=== PATIENT | male | born 1960 | race Caucasian/White ===

== ENCOUNTER 2017-05-02 19:24 | Emergency (ER) | payer OTHER ==
[2017-05-02 19:43] VITALS: BP 136/90; PULSE 82; TEMP 98.8
--- NOTE | 2017-05-02 21:08 | PDOC ---
History of Present Illness - General Chief Complaint: Rash Stated Complaint: RASH Time Seen by Provider: 05/02/17 20:53 History Source: Patient Exam Limitations: No Limitations - History of Present Illness Initial Comments: 05/02/17 21:03 BURNING RASH TO LEFT CHEST WALL Timing/Duration: reports: week Severity: Yes: mild Location: reports: torso Past History - Past Medical History Allergies/Adverse Reactions: Allergies Allergy/AdvReac Type Severity Reaction Status Date / Time codeine [Codeine] Allergy Severe Difficulty Verified 05/02/17 19:43 Breathing Home Medications: Ambulatory Orders Clopidogrel Bisulfate [Plavix -] 75 mg PO DAILY 06/30/14 Doxazosin Mesylate [Cardura] 4 mg PO HS 06/30/14 Isosorbide Mononitrate [Imdur] 60 mg PO DAILY 06/30/14 Lisinopril [Prinivil -] 20 mg PO DAILY 06/30/14 Metoprolol Succinate [Toprol XL -] 100 mg PO DAILY 06/30/14 Ondansetron [Zofran] 4 mg PO TID #10 tablet 06/30/14 Ranitidine HCl [Zantac] 150 mg NR BID #14 tablet 06/30/14 Simvastatin [Zocor -] 40 mg PO HS 06/30/14 Tapentadol HCl [Nucynta] 100 mg PO QID 06/30/14 Zolpidem Tartrate [Ambien] 10 mg PO HS 06/30/14 Cardiac Disorders: Yes (mi 2005) HTN: Yes Hypercholesterolemia: Yes Suicide Attempt (Hx): No Other medical history: arthritis, 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 - Surgical History Cardiac Surgery: Yes (6 stent) - Immunization History Td Vaccination: No TDAP Vaccination: No Immunization Up to Date: No - Psycho/Social/Smoking Cessation Hx Anxiety: No Suicidal Ideation: No Smoking Status: No Smoking History: Former smoker Have you smoked in the past 12 months: No Number of Cigarettes Smoked Daily: 0 Information on smoking cessation initiated: No Hx Alcohol Use: No Drug/Substance Use Hx: No Substance Use Type: None Review of Systems - Review of Systems Constitutional: No: Chills, Fever HEENTM: No: Symptoms Reported Respiratory: No: Symptoms reported, Cough Cardiac (ROS): No: Symptoms Reported ABD/GI: No: Symptoms Reported Integumentary: Yes: Other (RED BASED VESCIULAR RASHRASH ALONG SINGLE DERMATONE LEFT CHEST WALL) *Physical Exam - Vital Signs Last Vital Signs Temp Pulse Resp BP Pulse Ox 98.8 F 82 18 136/90 100 05/02/17 19:39 05/02/17 19:39 05/02/17 19:39 05/02/17 19:39 05/02/17 19:39 - Physical Exam General Appearance: Yes: Appropriately Dressed, Apparent Distress HEENT: negative: TMs Normal Neck: positive: Supple. negative: Rigid Respiratory/Chest: positive: Lungs Clear Integumentary: positive: Other (VESCIULAR LESIONS ALONG SINGLE DERMATONE LEFT CHEST WALL) Medical Decision Making - Medical Decision Making 05/02/17 21:06 WILL TREAT WITH VALTREX X 7 DAYS *DC/Admit/Observation/Transfer Diagnosis at time of Disposition: Herpes zoster Qualifiers: Herpes zoster complications: without complications Qualified Code(s): B02.9 - Zoster without complications - Discharge Dispostion Disposition: HOME Condition at time of disposition: Stable Admit: No - Patient Instructions Additional Instructions: SEE LOCAL MD 1 WEEK
== END 2017-05-02 21:31 | disposition home or self-care (01) ==
LOC: JERFT 19:24
DX: B02.9 Zoster without complications (principal); I10 Essential (primary) hypertension; E78.00 Pure hypercholesterolemia, unspecified; I25.2 Old myocardial infarction; M19.90 Unspecified osteoarthritis, unspecified site; Z88.5 Allergy status to narcotic agent; Z95.5 Presence of coronary angioplasty implant and graft; Z87.891 Personal history of nicotine dependence
CPT/HCPCS: 99281-25

== ENCOUNTER 2018-04-23 16:41 | Emergency (ER) | payer OTHER ==
[2018-04-23] MEDS ORDERED: ASPIRIN 81 MG CHEWABLE TABLETS PO ONE (16:54)
[2018-04-23 16:56] VITALS: BP 149/88; PULSE 72; TEMP 98.5; BMI 32.8
--- NOTE | 2018-04-23 16:56 | PDOC ---
Rapid Medical Evaluation Time Seen by Provider: 04/23/18 16:53 Medical Evaluation: Allergies Allergy/AdvReac Type Severity Reaction Status Date / Time codeine [Codeine] Allergy Severe Difficulty Verified 04/23/18 16:52 Breathing 04/23/18 16:54 Pt c/o: ms cp since this am, + nausea mild dizziness, NM in 06' on plavix, stent x 6 Pt on exam: ekg No st elevation/depression rate 86, vss, lcta Pt ordered for: cardiac w/u Pt to proceed to the ED Discharge Disposition - Diagnosis Chest pain - Referrals - Patient Instructions - Post Discharge Activity
[2018-04-23] MEDS ORDERED: ASPIRIN 81 MG CHEWABLE TABLETS ONE (17:27)
[2018-04-23 18:13] LABS: URINE APPEARANCE CLEAR; URINE BILIRUBIN NEGATIVE (<2.0 mg/dL); URINE COLOR LTYELLOW; URINE GLUCOSE (UA) NEGATIVE (NEGATIVE); URINE KETONE NEGATIVE (NEGATIVE); URINE LEUK ESTERASE NEGATIVE (NEGATIVE); URINE NITRITE NEGATIVE (NEGATIVE); URINE PROTEIN NEGATIVE (NEGATIVE); URINE UROBILINOGEN NEGATIVE mg/dL (0.2-1.0)
--- NOTE | 2018-04-23 18:20 | PDOC ---
History of Present Illness - General Chief Complaint: Chest Pain Stated Complaint: CHEST PAIN Time Seen by Provider: 04/23/18 16:53 - History of Present Illness Initial Comments: 04/23/18 19:27 The patient is a 57 year old male with a history of HTN, [place] s/p stenting x6 who presents for evaluation of chest pain. The patient notes that he had a stressful weekend driving to and back from [place]. He noted chest pain earlier today similar to pain he has had in the past, but due to his cardiac history was concerned and presented to the ED for further evaluation. He notes some left eye pain as well, but otherwise denies fevers, chills, SOB, nausea, vomiting, abdominal pain, or changes with urination or bowel movements. Past History - Past Medical History Allergies/Adverse Reactions: Allergies Allergy/AdvReac Type Severity Reaction Status Date / Time codeine [Codeine] Allergy Severe Difficulty Verified 04/23/18 16:52 Breathing Home Medications: Ambulatory Orders Clopidogrel Bisulfate [Plavix -] 75 mg PO DAILY 06/30/14 Doxazosin Mesylate [Cardura] 4 mg PO HS 06/30/14 Isosorbide Mononitrate [Imdur] 60 mg PO DAILY 06/30/14 Lisinopril [Prinivil -] 20 mg PO DAILY 06/30/14 Metoprolol Succinate [Toprol XL -] 100 mg PO DAILY 06/30/14 Ondansetron [Zofran] 4 mg PO TID #10 tablet 06/30/14 Ranitidine HCl [Zantac] 150 mg NR BID #14 tablet 06/30/14 Simvastatin [Zocor -] 40 mg PO HS 06/30/14 Tapentadol HCl [Nucynta] 100 mg PO QID 06/30/14 Valacyclovir HCl [Valtrex] 1,000 mg PO TID #21 tablet 05/02/17 Valacyclovir HCl [Valtrex] 1,000 mg PO TID #21 tablet 05/02/17 Cardiac Disorders: Yes (mi 2005) COPD: No HTN: Yes Hypercholesterolemia: Yes - Surgical History Cardiac Surgery: Yes (6 stent) - Immunization History Td Vaccination: No TDAP Vaccination: No Immunization Up to Date: No - Suicide/Smoking/Psychosocial Hx Smoking Status: No Smoking History: Former smoker Have you smoked in the past 12 months: No Number of Cigarettes Smoked Daily: 0 Information on smoking cessation initiated: No Hx Alcohol Use: No Drug/Substance Use Hx: No Substance Use Type: None Review of Systems - Review of Systems Comments:: 04/23/18 19:29 Constitutional: No fevers, chills, fatigue, malaise HEENT: Left Eye pain. No Rhinorrhea, nasal congestion, visual changes Cardiovascular: Chest pain. No syncope, palpitations, lightheadedness Respiratory: No Cough, SOB, Hemoptysis, Gastrointestinal: No Abdominal pain, Nausea, Vomiting, Constipation, Diarrhea, Melena Genitourinary: No Dysuria, Frequency, Urgency, Hesitancy, Hematuria, Flank pain Musculoskeletal: No Myalgia, arthralgia Skin: No rashes, itching, bruising, pallor Neurologic: No Headache, Dizziness, Numbness, Weakness, or Tingling Psychiatric: No Hallucinations. No SI or HI *Physical Exam - Vital Signs Last Vital Signs Temp Pulse Resp BP Pulse Ox 98.5 F 72 19 149/88 97 04/23/18 16:52 04/23/18 16:52 04/23/18 16:52 04/23/18 16:52 04/23/18 16:52 - Physical Exam Comments: 04/23/18 19:30 General Appearance: Nourished. No Apparent Distress HEENT: EOMI, WILLIS. Erythema and swelling around the left eye. No Pharyngeal Erythema, Tonsillar Exudate, Tonsillar Erythema Neck: No Cervical Lymphadenopathy Respiratory/Chest: Lungs Clear, Normal Breath Sounds. No Crackles, Rales, Rhonchi, Wheezing Cardiovascular: Regular Rhythm, Regular Rate. No Murmur, Gallops, Rubs Gastrointestinal/Abdominal: Normal Bowel Sounds, Soft. No Guarding, Rebound, Tenderness Musculoskeletal: No CVA Tenderness Extremity: Normal Capillary Refill Integumentary: Normal Color, Dry, Warm Neurologic: Fully Oriented, Alert, Normal Mood/Affect, Normal Response, Heart Score/ECG Review #1 ECG reviewed & interpreted by me at: 19:32 General ECG Interpretation: Sinus Rhythm, Normal Rate, Normal Intervals, No acute ischemic changes ED Treatment Course - LABORATORY CBC & Chemistry Diagram: 04/23/18 17:39 04/23/18 17:39 - Medications Given in the ED: ED Medications Discontinued Medications Generic Name Dose Route Start Last Admin Trade Name Freq PRN Reason Stop Dose Admin Aspirin 162 mg 07/30/18 16:54 04/23/18 17:28 Asa - PO 04/23/18 16:55 162 mg ONCE ONE Administration Medical Decision Making - Medical Decision Making 04/23/18 19:33 The patient is a 57 year old male with a history of HTN, [place] s/p stenting x6 who presents for evaluation of chest pain. Given the patient's history and physical exam, the patient appears to have a pre-septal cellulitis around the left eye. Also given his significant cardiac history, we will obtain a cbc, cmp , troponin, chest plain film, ekg to evaluate further. We will continue to monitor and reassess while here in the ED. 04/23/18 19:48 CBC, cmp, troponin are unremarkable. Chest plain film is unremarkable as read by our radiologist. However given the patient's cardiac history, we believe he should be admitted for further monitoring. The patient stated that he wished to leave AMA. We discussed the risks of leaving AMA including but not limited to and permanent disability and the patient voiced that he wished to leave AMA. We discussed the benefits of admission and the patient continued to wish to leave AMA. The patient states that he will follow up with his primary care provider. The patient signed the AMA form and his IV was removed. *DC/Admit/Observation/Transfer Diagnosis at time of Disposition: Chest pain Qualifiers: Chest pain type: unspecified Qualified Code(s): R07.9 - Chest pain, unspecified - Discharge Dispostion Disposition: AGAINST MEDICAL ADVICE Condition at time of disposition: Stable - Referrals Referrals: Nitza Baltazar MD [Primary Care Provider] - - Patient Instructions Printed Discharge Instructions: DI for Chest Pain Additional Instructions: Please return to the ER if you experience any concerning or worsening symptoms including worsening pain, lightheadedness or shortness of breath. - Post Discharge Activity
[2018-04-23 18:23] LABS: ALBUMIN 4.2 g/dl (3.4-5.0); ANION GAP 8 (8-16); BILIRUBIN,TOTAL 0.5 mg/dL (0.2-1.0); BLOOD UREA NITROGEN 20 mg/dL (7-18); CALCIUM 9.2 mg/dL (8.5-10.1); CHLORIDE 107 mmol/L (98-107); CO2 27 mmol/L (21-32); CREATININE 1.2 mg/dL (0.7-1.3); GLUCOSE,RANDOM 157 mg/dL (74-106); POTASSIUM 4.5 mmol/L (3.5-5.1); SGOT/AST 21 U/L (15-37); SGPT/ALT 59 U/L (12-78); SODIUM 142 mmol/L (136-145); TOT PROT 7.2 g/dl (6.4-8.2)
[2018-04-23 18:25] LABS: ALK PHOS 47 U/L (45-117)
[2018-04-23 18:34] LABS: INR 1.13 (0.83-1.09); PROTHROMBIN TIME (PATIENT) 12.8 SEC (9.7-13.0)
[2018-04-23 18:51] LABS: BASO % 0.8 % (0-2.0); HEMOGLOBIN 15.5 GM/dL (11.7-16.9); LYMPH % 24.8 % (8-40); MCH 30.9 pg (25.7-33.7); MCHC 35.2 g/dl (32.0-35.9); MEAN CELL VOLUME 87.7 fl (80-96); MEAN PLT VOLUME 10.3 fl (7.5-11.1); NEUT % 62.4 % (42.8-82.8); PLATELET COUNT 173 K/MM3 (134-434); RBC 5.01 M/mm3 (4.00-5.60); RDW 12.9 % (11.9-15.9); WHITE BLOOD COUNT 6.5 K/mm3 (4.0-10.0)
[2018-04-23] MEDS ORDERED: ERYTHROMYCIN 0.5% OPHTHALMIC OINTMENT 3.5 GM TUBE OD ONE (19:44)
--- NOTE | 2018-04-23 19:45 | PDOC ---
Attending Attestation - HPI HPI: 04/23/18 19:46 The patient is a 57 year old male with a history of hypertension, [place] s/p stenting x6, who presents to the emergency department for evaluation of chest pain today. The patient states he had a stressful weekend driving to and back from [place]. He also reports some mild left eye pain. The patient denies chest pain, shortness of breath, headache and dizziness. The patient denies fever, chills, nausea, vomit, diarrhea and constipation. The patient denies dysuria, frequency, urgency and hematuria. Allergies: NKDA - Physicial Exam PE: 04/23/18 19:46 GENERAL: Well developed, well nourished. Awake and alert. No acute distress. HEENT: Normocephalic, atraumatic. PERRLA, EOMI. No conjunctival pallor. Sclera are non- icteric. Moist mucous membranes. Oropharynx is clear. NECK: Supple. Full ROM. No JVD. Carotid pulses 2+ and symmetric, without bruits. No thyromegaly. No lymphadenopathy. CARDIOVASCULAR: Regular rate and rhythm. No murmurs, rubs, or gallops. Distal pulses are 2+ and symmetric. PULMONARY: No evidence of respiratory distress. Lungs clear to auscultation bilaterally. No wheezing, rales or rhonchi. ABDOMINAL: Soft. Non-tender. Non-distended. No rebound or guarding. No organomegaly. Normoactive bowel sounds. MUSCULOSKELETAL Normal range of motion at all joints. No bony deformities or tenderness. No CVA tenderness. EXTREMITIES: No cyanosis. No clubbing. No edema. No calf tenderness. SKIN: Warm and dry. Normal capillary refill. No rashes. No jaundice. NEUROLOGICAL: Alert, awake, appropriate. Cranial nerves 2-12 intact. Normoreflexic in the upper and lower extremities. Normal speech. Toes are down-going bilaterally. Gait is normal without ataxia. PSYCHIATRIC: Cooperative. Good eye contact. Appropriate mood and affect. - Medical Decision Making 04/23/18 19:46 Documentation prepared by Janette Bertrand, acting as district medical examiner for Opal Zambrano MD <Janette Bertrand - Last Filed: 04/23/18 19:46> - Resident Resident Name: Gulshan Valdivia - Medical Decision Making 04/23/18 19:49 57-year-old male who drove to [place] and back in one week and presents with substernal chest pain. Past medical history significant for coronary artery disease and has had 6 cardiac stents placed. First troponin is negative and his EKG does not show any acute ischemic changes -spoke to pt and his at length and he will not stay for a repeat troponin. I told him he had significant risk factors and I could not r/o [place] with one troponin level. he would not stay and signed out AMA <Opal Zambrano - Last Filed: 04/23/18 19:54>
--- NOTE | 2018-04-24 17:03 | EKG ---
Test Reason : Blood Pressure : / mmHG Vent. Rate : 069 BPM Atrial Rate : 069 BPM P-R Int : 160 ms QRS Dur : 086 ms QT Int : 388 ms P-R-T Axes : 001 -15 -19 degrees QTc Int : 415 ms NORMAL SINUS RHYTHM INFERIOR INFARCT (CITED ON OR BEFORE 22-APR-2003) ABNORMAL ECG Confirmed by MD KING GREGORY ([id number]) on 04/24/2018 5:02:53 PM Referred By: Confirmed By:HERNÁN KING MD
== END 2018-04-23 20:20 | disposition left against medical advice (07) ==
LOC: JER 16:41
DX: I25.2 Old myocardial infarction (principal); I25.10 Atherosclerotic heart disease of native coronary artery without angina pectoris; I10 Essential (primary) hypertension; Z95.5 Presence of coronary angioplasty implant and graft
CPT/HCPCS: 36415; 71045-TC-FY; 80053; 81003; 82550; 82553; 84484; 85025; 85610; 93005; 93010; 99282-25

== ENCOUNTER 2020-12-22 17:52 | Inpatient (IN) | payer OTHER ==
[2020-12-22 18:27] VITALS: BMI 33.4
[2020-12-22] MEDS ORDERED: ACETAMINOPHEN 1000 MG/100 ML VIAL (NON FORMULARY) IVPB ONE (18:30)
[2020-12-22] MEDS ORDERED: ACETAMINOPHEN INJECTION 100 ML IVPB ONE (18:40)
[2020-12-22] MEDS ORDERED: SODIUM CHLORIDE 500 ML IV STA (19:01)
[2020-12-22 19:22] LABS: VENOUS BASE EXCESS 0.7 mmol/L (-2-2); VENOUS PCO2 37.4 mmHg (38-52); VENOUS PH 7.436 (7.310-7.410)
[2020-12-22 19:25] LABS: VENOUS O2 SATURATION 80.5 % (70-80)
[2020-12-22 19:30] LABS: BASO % 0.3 % (0-2.0); EOS % 0.4 % (0-4.5); HEMATOCRIT 39.7 % (35.4-49); HEMOGLOBIN 13.5 GM/dL (11.7-16.9); LYMPH % 21.3 % (8-40); MCH 30.2 pg (25.7-33.7); MCHC 33.9 g/dl (32.0-35.9); MEAN CELL VOLUME 89.2 fl (80-96); MEAN PLT VOLUME 9.7 fl (7.5-11.1); MONO % 5.7 % (3.8-10.2); NEUT % 72.3 % (42.8-82.8); PLATELET COUNT 130 K/MM3 (134-434); RBC 4.46 M/mm3 (4.00-5.60); RDW 13.4 % (11.9-15.9); WHITE BLOOD COUNT 3.7 K/mm3 (4.0-10.0)
[2020-12-22 19:42] LABS: INR 1.26 (0.83-1.09); PROTHROMBIN TIME (PATIENT) 15.2 SEC (9.7-13.0)
[2020-12-22 19:43] LABS: CHLORIDE 99 mmol/L (98-107); SODIUM 131 mmol/L (136-145)
[2020-12-22 19:44] LABS: CALCIUM 7.5 mg/dL (8.5-10.1); GLUCOSE,RANDOM 150 mg/dL (74-106)
[2020-12-22 19:45] LABS: ACTIVATED PTT 32.6 SECONDS (25.2-36.5); ANION GAP 7 MMOL/L (8-16); BLOOD UREA NITROGEN 17.5 mg/dL (7-18); CO2 26 mmol/L (21-32)
[2020-12-22 19:47] LABS: BILIRUBIN,DIRECT 0.2 mg/dL (0.0-0.2)
[2020-12-22 19:48] LABS: SGPT/ALT 33 U/L (13-61)
[2020-12-22 19:49] LABS: CREATININE 1.2 mg/dL (0.55-1.3); SGOT/AST 47 U/L (15-37)
[2020-12-22 19:50] LABS: BILIRUBIN,TOTAL 0.7 mg/dL (0.2-1); TOT PROT 6.1 g/dl (6.4-8.2)
[2020-12-22 19:51] LABS: ALK PHOS 33 U/L (45-117)
[2020-12-22] MEDS ORDERED: DEXAMETHASONE SOD PHOSPHATE 4 MG/1 ML VIAL IVPUSH ONE (20:28)
[2020-12-22 20:32] LABS: LDH 473 U/L (87-246)
[2020-12-22] MEDS ORDERED: DEXAMETHASONE SOD PHOSPHATE 4 MG/1 ML VIAL ONE (21:33)
[2020-12-22] MEDS: SODIUM CHLORIDE 1,000 ML IV SCH (23:00)
[2020-12-23] MEDS ORDERED: ONDANSETRON *ODT* 4 MG TABLET ONE (06:34)
[2020-12-23] MEDS: ONDANSETRON 4 MG TABLET PO SCH ×3 (06:55→22:10)
[2020-12-23] MEDS: INSULIN SLIDING SCALE (NOVOLOG) 1 VIAL SQ SCH ×3 (07:29→17:01)
[2020-12-23 07:32] LABS: BASO % 0.6 % (0-2.0); EOS % 0.1 % (0-4.5); HEMATOCRIT 42.3 % (35.4-49); HEMOGLOBIN 14.9 GM/dL (11.7-16.9); LYMPH % 17.9 % (8-40); MCH 31.1 pg (25.7-33.7); MCHC 35.2 g/dl (32.0-35.9); MEAN CELL VOLUME 88.2 fl (80-96); MEAN PLT VOLUME 9.6 fl (7.5-11.1); MONO % 6.7 % (3.8-10.2); NEUT % 74.7 % (42.8-82.8); PLATELET COUNT 153 K/MM3 (134-434); RDW 13.1 % (11.9-15.9)
[2020-12-23 07:53] LABS: ALBUMIN 3.1 g/dl (3.4-5.0)
[2020-12-23 07:54] LABS: BLOOD UREA NITROGEN 20.8 mg/dL (7-18)
[2020-12-23 07:57] LABS: CALCIUM 7.9 mg/dL (8.5-10.1); CREATININE 1.3 mg/dL (0.55-1.3)
[2020-12-23 07:58] LABS: BILIRUBIN,TOTAL 0.8 mg/dL (0.2-1)
[2020-12-23 07:59] LABS: TOT PROT 6.6 g/dl (6.4-8.2)
[2020-12-23] MEDS ORDERED: ENOXAPARIN NA (PORCINE) 40 MG/0.4 ML DISP.SYRIN SQ SCH (10:00)
[2020-12-23] MEDS ORDERED: DEXAMETHASONE 4 MG TABLET (FP) PO SCH (10:00)
[2020-12-23] MEDS ORDERED: FAMOTIDINE 20 MG TABLET ONE ×2 (10:30→22:03)
[2020-12-23] MEDS ORDERED: DEXAMETHASONE SOD PHOSPHATE 10 MG/1 ML VIAL ONE (10:30)
[2020-12-23] MEDS ORDERED: CLOPIDOGREL BISULFATE 75 MG TABLET (FP) ONE (10:31)
[2020-12-23] MEDS ORDERED: LISINOPRIL 20 MG TABLET ONE (10:31)
[2020-12-23] MEDS ORDERED: ISOSORBIDE MONONITRATE 60 MG TAB.SR.24H (FP) PO ONE (10:31)
[2020-12-23] MEDS ORDERED: PT OWN MED DRAWER 7, Y5N ONE (10:32)
[2020-12-23] MEDS ORDERED: ENOXAPARIN NA (PORCINE) 40 MG/0.4 ML DISP.SYRIN SQ ONE ×2 (10:32→22:03)
[2020-12-23] MEDS: ISOSORBIDE MONONITRATE 60 MG TAB.SR.24H (FP) PO SCH (10:41)
[2020-12-23] MEDS: CLOPIDOGREL BISULFATE 75 MG TABLET (FP) PO SCH (10:43)
[2020-12-23] MEDS: FAMOTIDINE 20 MG TABLET PO SCH ×2 (10:43→22:10)
[2020-12-23] MEDS: LISINOPRIL 20 MG TABLET PO SCH (10:44)
[2020-12-23] MEDS ORDERED: ALBUTEROL SO4 HFA INHALER IH ONE ×2 (16:11→22:02)
[2020-12-23] MEDS ORDERED: REMDESIVIR 200 MG in SODIUM CHLORIDE 210 ML IVPB ONE (16:30)
[2020-12-23] MEDS: ALBUTEROL SO4 HFA INHALER IH SCH ×2 (16:33→22:15)
[2020-12-23] MEDS ORDERED: ATORVASTATIN CA 20 MG TABLET (FP) ONE (22:02)
[2020-12-23] MEDS: ENOXAPARIN NA (PORCINE) 40 MG/0.4 ML DISP.SYRIN SQ SCH (22:10)
[2020-12-23] MEDS: ATORVASTATIN CA 20 MG TABLET (FP) PO SCH (22:10)
[2020-12-23] MEDS: BUDESONIDE/FORMETEROL FUMARATE 160/4.5 mcg INHALER IH SCH (22:27)
[2020-12-23] MEDS: DOXAZOSIN MESYLATE 4 MG TABLET PO SCH (22:27)
[2020-12-23] MEDS: SODIUM CHLORIDE 1,000 ML IV SCH (23:12)
[2020-12-24] MEDS ORDERED: ZOLPIDEM TARTRATE 5 MG TABLET PO ONE (00:56)
[2020-12-24] MEDS: ACETAMINOPHEN 325 MG TABLET (FP) PO PRN ×2 (01:01→12:19)
[2020-12-24] MEDS: ONDANSETRON 4 MG TABLET PO SCH ×3 (06:11→17:10)
[2020-12-24] MEDS: INSULIN SLIDING SCALE (NOVOLOG) 1 VIAL SQ SCH ×3 (06:19→17:25)
[2020-12-24] MEDS: ALBUTEROL SO4 HFA INHALER IH SCH ×4 (08:42→21:35)
[2020-12-24] MEDS: FAMOTIDINE 20 MG TABLET PO SCH ×2 (09:43→21:35)
[2020-12-24] MEDS: ISOSORBIDE MONONITRATE 60 MG TAB.SR.24H (FP) PO SCH (09:43)
[2020-12-24] MEDS: LISINOPRIL 20 MG TABLET PO SCH (09:43)
[2020-12-24] MEDS: CLOPIDOGREL BISULFATE 75 MG TABLET (FP) PO SCH (09:43)
[2020-12-24] MEDS: ENOXAPARIN NA (PORCINE) 40 MG/0.4 ML DISP.SYRIN SQ SCH ×2 (09:44→21:36)
[2020-12-24] MEDS ORDERED: TAPENTADOL HYDROCHLORIDE 50 MG TABLET PO PRN (09:53)
[2020-12-24] MEDS: DEXAMETHASONE SOD PHOSPHATE 4 MG/1 ML VIAL IVPUSH SCH (10:56)
[2020-12-24] MEDS ORDERED: PT OWN MED DRAWER 7, Y5N ONE ×2 (12:07→18:36)
[2020-12-24] MEDS: BUDESONIDE/FORMETEROL FUMARATE 160/4.5 mcg INHALER IH SCH ×2 (12:13→21:36)
[2020-12-24] MEDS ORDERED: SODIUM CHLORIDE NASAL SPRAY 44 ML BOTTLE NS PRN (12:23)
[2020-12-24] MEDS: TAPENTADOL HCL 50 MG TAB.ER.12H PO SCH ×3 (13:58→21:36)
[2020-12-24] MEDS: SODIUM CHLORIDE 1,000 ML IV SCH (13:59)
[2020-12-24] MEDS: REMDESIVIR 100 MG in SODIUM CHLORIDE 230 ML IVPB SCH (17:09)
[2020-12-24] MEDS: ATORVASTATIN CA 20 MG TABLET (FP) PO SCH (21:35)
[2020-12-24] MEDS: DOXAZOSIN MESYLATE 4 MG TABLET PO SCH (21:35)
[2020-12-24] MEDS: BENZOCAINE/MENTH/CETYLPYRD CL 1 EACH LOZENGE MM PRN (21:36)
[2020-12-25] MEDS: SODIUM CHLORIDE 1,000 ML IV SCH (01:06)
[2020-12-25] MEDS ORDERED: PT OWN MED DRAWER 7, Y5N ONE (06:23)
[2020-12-25] MEDS: INSULIN SLIDING SCALE (NOVOLOG) 1 VIAL SQ SCH ×3 (06:36→16:58)
[2020-12-25] MEDS: ONDANSETRON 4 MG TABLET PO SCH ×3 (06:37→16:58)
[2020-12-25] MEDS: DEXAMETHASONE SOD PHOSPHATE 4 MG/1 ML VIAL IVPUSH SCH (09:01)
[2020-12-25] MEDS: ALBUTEROL SO4 HFA INHALER IH SCH ×4 (09:02→21:09)
[2020-12-25] MEDS: ENOXAPARIN NA (PORCINE) 40 MG/0.4 ML DISP.SYRIN SQ SCH ×2 (09:02→21:09)
[2020-12-25] MEDS: FAMOTIDINE 20 MG TABLET PO SCH ×2 (09:03→21:10)
[2020-12-25] MEDS: ISOSORBIDE MONONITRATE 60 MG TAB.SR.24H (FP) PO SCH (09:03)
[2020-12-25] MEDS: TAPENTADOL HCL 50 MG TAB.ER.12H PO SCH ×2 (09:03→21:10)
[2020-12-25] MEDS: LISINOPRIL 20 MG TABLET PO SCH (09:03)
[2020-12-25] MEDS: CLOPIDOGREL BISULFATE 75 MG TABLET (FP) PO SCH (09:03)
[2020-12-25] MEDS: BUDESONIDE/FORMETEROL FUMARATE 160/4.5 mcg INHALER IH SCH ×2 (09:03→21:10)
[2020-12-25] MEDS: BENZOCAINE/MENTH/CETYLPYRD CL 1 EACH LOZENGE MM PRN ×2 (09:10→21:11)
[2020-12-25] MEDS: REMDESIVIR 100 MG in SODIUM CHLORIDE 230 ML IVPB SCH (16:47)
[2020-12-25] MEDS: ACETAMINOPHEN 325 MG TABLET (FP) PO PRN (18:03)
[2020-12-25] MEDS: DOXAZOSIN MESYLATE 4 MG TABLET PO SCH (21:09)
[2020-12-25] MEDS: ATORVASTATIN CA 20 MG TABLET (FP) PO SCH (21:10)
[2020-12-25] MEDS ORDERED: INSULIN (LEVEMIR) 100 UNITS/ML UNITS SQ SCH (22:00)
[2020-12-26] MEDS: ONDANSETRON 4 MG TABLET PO SCH ×3 (06:22→16:57)
[2020-12-26] MEDS: INSULIN SLIDING SCALE (NOVOLOG) 1 VIAL SQ SCH ×3 (06:23→17:09)
[2020-12-26] MEDS: ALBUTEROL SO4 HFA INHALER IH SCH ×4 (09:21→21:19)
[2020-12-26] MEDS: ISOSORBIDE MONONITRATE 60 MG TAB.SR.24H (FP) PO SCH (09:22)
[2020-12-26] MEDS: CLOPIDOGREL BISULFATE 75 MG TABLET (FP) PO SCH (09:22)
[2020-12-26] MEDS: FAMOTIDINE 20 MG TABLET PO SCH ×2 (09:22→21:19)
[2020-12-26] MEDS: LISINOPRIL 20 MG TABLET PO SCH (09:22)
[2020-12-26] MEDS: ENOXAPARIN NA (PORCINE) 40 MG/0.4 ML DISP.SYRIN SQ SCH ×2 (09:23→21:19)
[2020-12-26] MEDS: DEXAMETHASONE SOD PHOSPHATE 4 MG/1 ML VIAL IVPUSH SCH (09:23)
[2020-12-26] MEDS: TAPENTADOL HCL 50 MG TAB.ER.12H PO SCH ×2 (09:24→21:19)
[2020-12-26] MEDS: BUDESONIDE/FORMETEROL FUMARATE 160/4.5 mcg INHALER IH SCH ×2 (09:24→21:20)
[2020-12-26] MEDS ORDERED: INSULIN (LEVEMIR) 100 UNITS/ML UNITS SQ SCH (14:25)
[2020-12-26] MEDS: REMDESIVIR 100 MG in SODIUM CHLORIDE 230 ML IVPB SCH (16:57)
[2020-12-26] MEDS ORDERED: INSULIN (NOVOLOG) ASPART 100 UNITS/ML 10ML VIAL SQ ONE (17:30)
[2020-12-26] MEDS: DOXAZOSIN MESYLATE 4 MG TABLET PO SCH (21:11)
[2020-12-26] MEDS: ATORVASTATIN CA 20 MG TABLET (FP) PO SCH (21:19)
[2020-12-26] MEDS: POLYETHYLENE GLYCOL 3350 119 GM BTL PO PRN (22:28)
[2020-12-26] MEDS: MAG HYDROX/AL HYDROX/SIMETH 30 ML UNIT-DOSE CUP PO PRN (22:28)
[2020-12-26] MEDS: MELATONIN 5 MG TABLETS PO PRN (22:28)
[2020-12-27] MEDS: INSULIN SLIDING SCALE (NOVOLOG) 1 VIAL SQ SCH ×3 (06:28→16:53)
[2020-12-27 07:24] LABS: BASO % 0.2 % (0-2.0); EOS % 1.5 % (0-4.5); HEMOGLOBIN 13.8 GM/dL (11.7-16.9); LYMPH % 21.8 % (8-40); MCH 30.9 pg (25.7-33.7); MCHC 34.6 g/dl (32.0-35.9); MEAN CELL VOLUME 89.4 fl (80-96); MEAN PLT VOLUME 8.9 fl (7.5-11.1); MONO % 9.8 % (3.8-10.2); NEUT % 66.7 % (42.8-82.8); PLATELET COUNT 239 K/MM3 (134-434); RBC 4.47 M/mm3 (4.00-5.60); RDW 13.2 % (11.9-15.9); WHITE BLOOD COUNT 6.9 K/mm3 (4.0-10.0)
[2020-12-27 07:27] LABS: CALCIUM 8.6 mg/dL (8.5-10.1)
[2020-12-27 07:28] LABS: ALBUMIN 2.7 g/dl (3.4-5.0); BLOOD UREA NITROGEN 24.6 mg/dL (7-18); MAGNESIUM 2.2 mg/dL (1.8-2.4)
[2020-12-27 07:31] LABS: CREATININE 1.2 mg/dL (0.55-1.3)
[2020-12-27 07:32] LABS: BILIRUBIN,TOTAL 0.5 mg/dL (0.2-1); TOT PROT 5.8 g/dl (6.4-8.2)
[2020-12-27] MEDS: ALBUTEROL SO4 HFA INHALER IH SCH ×4 (08:36→21:31)
[2020-12-27] MEDS: CLOPIDOGREL BISULFATE 75 MG TABLET (FP) PO SCH (09:36)
[2020-12-27] MEDS: ISOSORBIDE MONONITRATE 60 MG TAB.SR.24H (FP) PO SCH (09:36)
[2020-12-27] MEDS: ENOXAPARIN NA (PORCINE) 40 MG/0.4 ML DISP.SYRIN SQ SCH ×2 (09:37→21:30)
[2020-12-27] MEDS: DEXAMETHASONE SOD PHOSPHATE 4 MG/1 ML VIAL IVPUSH SCH (09:37)
[2020-12-27] MEDS: MAG HYDROX/AL HYDROX/SIMETH 30 ML UNIT-DOSE CUP PO PRN ×2 (09:37→21:32)
[2020-12-27] MEDS: TAPENTADOL HCL 50 MG TAB.ER.12H PO SCH ×2 (09:37→21:31)
[2020-12-27] MEDS: LISINOPRIL 20 MG TABLET PO SCH (09:38)
[2020-12-27] MEDS: BUDESONIDE/FORMETEROL FUMARATE 160/4.5 mcg INHALER IH SCH ×2 (09:38→21:31)
[2020-12-27] MEDS: POLYETHYLENE GLYCOL 3350 119 GM BTL PO PRN (09:38)
[2020-12-27] MEDS: FAMOTIDINE 20 MG TABLET PO SCH ×2 (09:38→21:30)
[2020-12-27] MEDS: amLODIPine BESYLATE 10 MG TABLET (FP) PO SCH (09:44)
[2020-12-27] MEDS: TAMSULOSIN HCL 0.4 MG CAP PO SCH (09:44)
[2020-12-27 11:14] LABS: ANISOCYTOSIS 0; MACROCYTOSIS 0; PLATELET ESTIMATE NORMAL
[2020-12-27] MEDS: REMDESIVIR 100 MG in SODIUM CHLORIDE 230 ML IVPB SCH (16:50)
[2020-12-27] MEDS: BENZOCAINE/MENTH/CETYLPYRD CL 1 EACH LOZENGE MM PRN (18:44)
[2020-12-27] MEDS: GABAPENTIN 300 MG CAPSULE PO SCH (21:30)
[2020-12-27] MEDS: ATORVASTATIN CA 20 MG TABLET (FP) PO SCH (21:30)
[2020-12-27] MEDS: MELATONIN 5 MG TABLETS PO PRN (21:30)
[2020-12-27] MEDS ORDERED: INSULIN (LEVEMIR) 100 UNITS/ML UNITS SQ SCH ×2 (22:00)
[2020-12-28] MEDS: INSULIN SLIDING SCALE (NOVOLOG) 1 VIAL SQ SCH ×2 (06:38→12:06)
[2020-12-28] MEDS: ALBUTEROL SO4 HFA INHALER IH SCH ×3 (08:26→16:44)
[2020-12-28] MEDS: TAMSULOSIN HCL 0.4 MG CAP PO SCH (08:26)
[2020-12-28] MEDS: amLODIPine BESYLATE 10 MG TABLET (FP) PO SCH (09:59)
[2020-12-28] MEDS: LISINOPRIL 20 MG TABLET PO SCH (09:59)
[2020-12-28] MEDS: ENOXAPARIN NA (PORCINE) 40 MG/0.4 ML DISP.SYRIN SQ SCH (09:59)
[2020-12-28] MEDS: GABAPENTIN 300 MG CAPSULE PO SCH (09:59)
[2020-12-28] MEDS: ISOSORBIDE MONONITRATE 60 MG TAB.SR.24H (FP) PO SCH (09:59)
[2020-12-28] MEDS: FAMOTIDINE 20 MG TABLET PO SCH (10:00)
[2020-12-28] MEDS: CLOPIDOGREL BISULFATE 75 MG TABLET (FP) PO SCH (10:00)
[2020-12-28] MEDS ORDERED: DEXAMETHASONE 4 MG TABLET (FP) PO SCH (10:00)
[2020-12-28] MEDS: TAPENTADOL HCL 50 MG TAB.ER.12H PO SCH (10:00)
[2020-12-28] MEDS: BUDESONIDE/FORMETEROL FUMARATE 160/4.5 mcg INHALER IH SCH (10:01)
[2020-12-28 14:00] VITALS: BP 102/62; PULSE 70; TEMP 98.4
== END 2020-12-28 18:13 | disposition home or self-care (01) | DRG 177 ==
LOC: SUPCPDRO 17:52 → JER 17:52 → JERBED 21:40 → J4S 12-24 00:12
PROVIDERS: ADMIT Internal Medicine; ATTEND Internal Medicine
PROC: XW033E5 Introduction of Remdesivir Anti-infective into Peripheral Vein, Percutaneous Approach, New Technology Group 5 (ICD-10-PCS; principal; 2020-12-23)
DX: U07.1 COVID-19 (principal); J96.01 Acute respiratory failure with hypoxia; J12.82 Pneumonia due to coronavirus disease 2019; B02.29 Other postherpetic nervous system involvement; N40.0 Benign prostatic hyperplasia without lower urinary tract symptoms; I25.10 Atherosclerotic heart disease of native coronary artery without angina pectoris; E11.65 Type 2 diabetes mellitus with hyperglycemia; R07.9 Chest pain, unspecified; I10 Essential (primary) hypertension; E78.5 Hyperlipidemia, unspecified
CPT/HCPCS: 36415; 71045-TC-FY; 80053; 82248; 82550; 82553; 82728; 82803; 82962; 83036; 83605; 83615; 83735; 84484; 85025; 85379; 85610; 85730; 86140; 86769; 87040; 93005; 93010; 94761; 99285-25; C9399; C9803; J0131; U0003; U0005

== ENCOUNTER 2021-01-24 13:22 | Emergency (ER) | payer OTHER ==
[2021-01-24 13:30] VITALS: BP 132/96; PULSE 86; TEMP 97; BMI 31.8
[2021-01-24] MEDS ORDERED: ACETAMINOPHEN 325 MG TABLET (FP) PO ONE (14:14)
[2021-01-24] MEDS ORDERED: ACETAMINOPHEN 325 MG TABLET (FP) ONE (14:47)
== END 2021-01-24 16:15 | disposition home or self-care (01) ==
LOC: JER 13:22
DX: N43.3 Hydrocele, unspecified (principal)
CPT/HCPCS: 76870-TC; 99284-25

== ENCOUNTER 2021-01-25 12:32 | Emergency (ER) | payer OTHER ==
[2021-01-25 12:52] VITALS: BP 130/89; PULSE 93; TEMP 98.1; BMI 30.8
== END 2021-01-25 16:50 | disposition home or self-care (01) ==
LOC: JER 12:32
DX: N43.3 Hydrocele, unspecified (principal)
CPT/HCPCS: 99283-25; C9803; U0003; U0005

== ENCOUNTER 2021-02-05 05:03 | Day surgery (SDC) | payer OTHER ==
[2021-02-01 14:39] VITALS: BMI 30.8
[~2021-02-05 05:03] MED LIST: BUPIVACAINE HCL/PF 0.5% (5MG/ML) 10 ML VIAL IJ ONE; LIDOCAINE HCL 1%, 10 MG/ML (20ML VIAL) INF ONE
[2021-02-05] MEDS ORDERED: BUPIVACAINE HCL/PF 0.5% (5MG/ML) 10 ML VIAL ONE (12:08)
[2021-02-05] MEDS ORDERED: LIDOCAINE HCL 1%, 10 MG/ML (20ML VIAL) ONE (12:08)
[2021-02-05] MEDS ORDERED: LIDOCAINE HCL/PF 2% SDV 5ML VIAL ONE (12:24)
[2021-02-05] MEDS ORDERED: MIDAZOLAM HCL 2 MG/2 ML SINGLE DOSE VIAL ONE (12:24)
[2021-02-05] MEDS ORDERED: PROPOFOL 20 ML ONE ×2 (12:24→12:33)
[2021-02-05] MEDS ORDERED: ceFAZolin SODIUM 1 GM VIAL ONE (12:35)
[2021-02-05] MEDS ORDERED: ceFAZolin SODIUM 1 GM VIAL IVPB ONE (12:35)
[2021-02-05] MEDS ORDERED: EPHEDRINE SULFATE/0.9% NACL/PF 50 MG/10 ML SYRINGE NR ONE (12:37)
[2021-02-05] MEDS ORDERED: BUPIVACAINE HCL/PF 0.5% (5MG/ML) 10 ML VIAL IJ ONE (12:43)
[2021-02-05] MEDS ORDERED: LIDOCAINE HCL 1%, 10 MG/ML (20ML VIAL) INF ONE (12:43)
[2021-02-05] MEDS ORDERED: oxyCODONE HCL 5 MG TABLET PO PRN ×2 (13:48)
[2021-02-05] MEDS ORDERED: ONDANSETRON 4 MG/2 ML VIAL IVPUSH PRN (13:48)
[2021-02-05] MEDS ORDERED: LACTATED RINGERS SOLUTION 1,000 ML IV SCH (14:00)
[2021-02-05 15:02] VITALS: TEMP 98.4
[2021-02-05] MEDS ORDERED: oxyCODONE HCL 5 MG TABLET PO ONE (15:20)
[2021-02-05 15:50] VITALS: BP 121/81; PULSE 80
== END 2021-02-05 17:00 | disposition home or self-care (01) ==
LOC: JASU-SURG 05:03
PROVIDERS: ATTEND Urology
PROC: 0VB70ZZ Excision of Left Tunica Vaginalis, Open Approach (ICD-10-PCS; principal; 2021-02-05 10:00)
DX: N43.3 Hydrocele, unspecified (principal); E11.9 Type 2 diabetes mellitus without complications; I10 Essential (primary) hypertension; Z79.84 Long term (current) use of oral hypoglycemic drugs
CPT/HCPCS: 82962; 87070; 87075; 87205; 88108; 88302-TC; 94760

== ENCOUNTER 2022-02-07 08:14 | Day surgery (SDC) | payer OTHER ==
[2022-01-25 12:36] VITALS: BMI 31.9
[2022-02-07 08:55] VITALS: BP 124/73; PULSE 68; TEMP 97.6
[2022-02-07] MEDS ORDERED: MIDAZOLAM HCL 2 MG/2 ML SINGLE DOSE VIAL ONE (09:08)
[2022-02-07] MEDS ORDERED: BUPIVACAINE HCL/PF 0.5% (5MG/ML) 10 ML VIAL ONE (09:09)
[2022-02-07] MEDS ORDERED: BUPIVACAINE LIPOSOME/PF (EXPAREL) 266 MG/20 ML VIAL ONE (09:09)
[2022-02-07] MEDS ORDERED: VANCOMYCIN 1,000 MG VIAL (RESTRICTED TO ID ONLY) ONE (09:28)
== END 2022-02-07 12:00 | disposition home or self-care (01) ==
LOC: UNDOADMIN 08:14 → FASUSAT 08:14 → FM/S 08:14 → EDSTATUS 09:24 → UNDODISIN 12:00 → FASUSAT 12:00 → EDSTATUS 13:33
PROVIDERS: ATTEND Orthopaedic Surgery Sports Medicine
PROC: 0SRD0JZ Replacement of Left Knee Joint with Synthetic Substitute, Open Approach (ICD-10-PCS; principal; 2022-02-07)
DX: Z53.8 Procedure and treatment not carried out for other reasons (principal); M17.12 Unilateral primary osteoarthritis, left knee
CPT/HCPCS: 82962

== ENCOUNTER 2022-02-14 10:31 | Inpatient (IN) | payer OTHER ==
[2022-02-10 11:26] VITALS: BMI 31.9
[~2022-02-14 10:31] MED LIST changes: -BUPIVACAINE HCL/PF 0.5% (5MG/ML) 10 ML VIAL IJ ONE; +BUPIVICAINE 0.25%/MORPH PF/KETOROLAC - 51ML DISP.SYRINGE IA ONE; -LIDOCAINE HCL 1%, 10 MG/ML (20ML VIAL) INF ONE; +VANCOMYCIN 1,000 MG VIAL (RESTRICTED TO ID ONLY) IVPB ONE
[2022-02-14] MEDS ORDERED: CEFAZOLIN 2 GM in DEXTROSE 5%-WATER - 50 ML IVPB ONE (12:00)
[2022-02-14] MEDS ORDERED: TRANEXAMIC ACID 1000 MG/10 ML VIAL IVPUSH ONE (12:00)
[2022-02-14] MEDS ORDERED: MIDAZOLAM HCL 2 MG/2 ML SINGLE DOSE VIAL ONE ×4 (13:06→15:37)
[2022-02-14] MEDS ORDERED: BUPIVACAINE LIPOSOME/PF (EXPAREL) 266 MG/20 ML VIAL ONE (13:06)
[2022-02-14] MEDS ORDERED: FENTANYL CITRATE/PF 50 MCG/ML VIAL ONE (13:07)
[2022-02-14] MEDS ORDERED: BUPIVACAINE HCL/PF 0.5% (5MG/ML) 10 ML VIAL ONE (13:07)
[2022-02-14] MEDS ORDERED: SODIUM CHLORIDE 0.9% P/F 10 ML VIAL IJ ONE (13:07)
[2022-02-14] MEDS ORDERED: VANCOMYCIN 1,000 MG VIAL (RESTRICTED TO ID ONLY) ONE ×2 (13:22→14:12)
[2022-02-14] MEDS ORDERED: ceFAZolin SODIUM 1 GM VIAL ONE ×2 (14:12→20:56)
[2022-02-14] MEDS ORDERED: TRANEXAMIC ACID 1000 MG/10 ML VIAL ONE (14:12)
[2022-02-14] MEDS ORDERED: ONDANSETRON 4 MG/2 ML VIAL ONE (14:12)
[2022-02-14] MEDS ORDERED: PROPOFOL 20 ML ONE ×3 (14:17→16:41)
[2022-02-14] MEDS ORDERED: BUPIVICAINE 0.25%/MORPH PF/KETOROLAC - 51ML DISP.SYRINGE IA ONE ×2 (15:26→16:15)
[2022-02-14] MEDS ORDERED: VANCOMYCIN 1,000 MG VIAL (RESTRICTED TO ID ONLY) IVPB ONE (16:00)
[2022-02-14] MEDS ORDERED: MAG HYDROX/AL HYDROX/SIMETH 30 ML UNIT-DOSE CUP PO PRN (16:29)
[2022-02-14] MEDS ORDERED: ONDANSETRON 4 MG/2 ML VIAL IVPUSH PRN ×2 (16:29→17:13)
[2022-02-14] MEDS ORDERED: LACTATED RINGERS SOLUTION 1,000 ML IV SCH (16:30)
[2022-02-14] MEDS ORDERED: ACETAMINOPHEN 1000 MG/100 ML BAG IVPB ONE (17:13)
[2022-02-14] MEDS ORDERED: oxyCODONE HCL 5 MG TABLET PO PRN (17:13)
[2022-02-14] MEDS: LACTATED RINGERS SOLUTION 1,000 ML IV SCH (17:38)
[2022-02-14] MEDS: oxyCODONE HCL 5 MG TABLET PO PRN ×2 (18:25→21:29)
[2022-02-14] MEDS ORDERED: DEXTROSE 5%-WATER - 50 ML IVPB ONE (20:57)
[2022-02-14] MEDS: CEFAZOLIN 2 GM in DEXTROSE 5%-WATER - 50 ML IVPB SCH (21:28)
[2022-02-14] MEDS: SENNOSIDES/DOCUSATE COMBO (SENNA PLUS) TABLET (UD) PO SCH (21:29)
[2022-02-14] MEDS: GABAPENTIN 300 MG CAPSULE PO SCH (21:30)
[2022-02-15] MEDS: oxyCODONE HCL 5 MG TABLET PO PRN ×5 (00:50→16:20)
[2022-02-15] MEDS: CEFAZOLIN 2 GM in DEXTROSE 5%-WATER - 50 ML IVPB SCH ×2 (02:00→12:35)
[2022-02-15] MEDS ORDERED: DEXTROSE 5%-WATER - 50 ML IVPB ONE ×2 (03:45→10:44)
[2022-02-15] MEDS ORDERED: ceFAZolin SODIUM 1 GM VIAL ONE ×2 (03:45→10:44)
[2022-02-15 07:37] LABS: HEMATOCRIT 42.4 % (35.4-49); HEMOGLOBIN 14.6 G/dL (11.7-16.9); MCH 30.1 pg (25.7-33.7); MCHC 34.4 g/dl (32.0-35.9); MEAN CELL VOLUME 87.7 fl (80-96); MEAN PLT VOLUME 9.7 fl (7.5-11.1); PLATELET COUNT 99.4 10^3/uL (134-434); RBC 4.84 10^6/uL (4.00-5.60); RDW 13.9 % (11.9-15.9); WHITE BLOOD COUNT 7.2 10^3/uL (4.0-10.8)
[2022-02-15 07:49] LABS: CALCIUM 8.8 mg/dl (8.5-10); CREATININE 1.7 mg/dl (0.55-1.3)
[2022-02-15] MEDS: LACTATED RINGERS SOLUTION 1,000 ML IV SCH (08:39)
[2022-02-15] MEDS: SENNOSIDES/DOCUSATE COMBO (SENNA PLUS) TABLET (UD) PO SCH (09:55)
[2022-02-15] MEDS: GABAPENTIN 300 MG CAPSULE PO SCH (09:55)
[2022-02-15] MEDS ORDERED: PANTOPRAZOLE 40 MG TABLET PO SCH (10:00)
[2022-02-15] MEDS ORDERED: MULTIVITAMINS (DAILY MVI) TABLET (FP) PO SCH (10:00)
[2022-02-15] MEDS ORDERED: ASPIRIN 325 MG TABLET PO SCH (10:00)
[2022-02-15] MEDS ORDERED: amLODIPine BESYLATE 10 MG TABLET (FP) PO SCH (10:15)
[2022-02-15 14:10] VITALS: BP 120/68; PULSE 80; TEMP 99.6
[2022-02-15] MEDS ORDERED: INSULIN (NOVOLOG) ASPART 100 UNITS/ML 10ML VIAL SQ SCH (16:30)
[2022-02-15] MEDS ORDERED: TAMSULOSIN HCL 0.4 MG CAP PO SCH (22:00)
[2022-02-15] MEDS ORDERED: ATORVASTATIN CA 10 MG TABLET (FP) PO SCH (22:00)
== END 2022-02-15 20:00 | disposition home or self-care (01) | DRG 302 ==
LOC: FM/S 10:31
PROVIDERS: ADMIT Orthopaedic Surgery Sports Medicine; ATTEND Nurse Practitioner Acute Care
PROC: 0SRD0J9 Replacement of Left Knee Joint with Synthetic Substitute, Cemented, Open Approach (ICD-10-PCS; principal; 2022-02-14 14:44)
DX: M17.12 Unilateral primary osteoarthritis, left knee (principal); I10 Essential (primary) hypertension; E78.5 Hyperlipidemia, unspecified; I25.10 Atherosclerotic heart disease of native coronary artery without angina pectoris; Z95.5 Presence of coronary angioplasty implant and graft; G89.29 Other chronic pain; E11.9 Type 2 diabetes mellitus without complications; N40.0 Benign prostatic hyperplasia without lower urinary tract symptoms
CPT/HCPCS: 36415; 73560-TC-LT-FY; 80048; 82962; 85027; 88305-TC; 88311-TC; 94760; 97010-GP; 97116-GP; 97161-GP

== ENCOUNTER 2022-03-18 04:14 | Day surgery (SDC) | payer OTHER ==
[2022-03-16 10:21] VITALS: BMI 29.6
[2022-03-18] MEDS ORDERED: LIDOCAINE HCL/PF 1% SDV 5ML VIAL ONE (07:11)
[2022-03-18] MEDS ORDERED: BUPIVACAINE HCL/PF 0.75% 10 ML VIAL ONE (07:11)
[2022-03-18] MEDS ORDERED: LIDOCAINE 1% P/F 10 MG/ML VIAL INF ONE (09:01)
[2022-03-18] MEDS ORDERED: BUPIVACAINE HCL/PF 0.75% 10 ML VIAL NR ONE (09:02)
[2022-03-18 10:05] VITALS: BP 130/80; PULSE 78; TEMP 98
== END 2022-03-18 10:05 | disposition home or self-care (01) ==
LOC: JASU-SURG 04:14
PROVIDERS: ATTEND Pain Medicine Pain Medicine
PROC: 3E0T33Z Introduction of Anti-inflammatory into Peripheral Nerves and Plexi, Percutaneous Approach (ICD-10-PCS; 2022-03-18)
PROC: 3E0T3BZ Introduction of Anesthetic Agent into Peripheral Nerves and Plexi, Percutaneous Approach (ICD-10-PCS; principal; 2022-03-18 08:30)
DX: M47.816 Spondylosis without myelopathy or radiculopathy, lumbar region (principal)
CPT/HCPCS: 76000-TC-FY

== ENCOUNTER 2022-04-11 06:21 | Day surgery (SDC) | payer OTHER ==
[2022-04-05 14:25] VITALS: BMI 30.2
[2022-04-11] MEDS ORDERED: MIDAZOLAM HCL 2 MG/2 ML SINGLE DOSE VIAL ONE (07:48)
[2022-04-11] MEDS ORDERED: PROPOFOL 20 ML ONE (07:50)
[2022-04-11] MEDS ORDERED: ACETAMINOPHEN 500 MG TABLET (FP) PO PRN (07:59)
[2022-04-11] MEDS ORDERED: LACTATED RINGERS SOLUTION 1,000 ML IV SCH (08:00)
[2022-04-11] MEDS ORDERED: FENTANYL CITRATE/PF 50 MCG/ML VIAL ONE ×2 (08:58→09:02)
[2022-04-11 09:43] VITALS: TEMP 97.3
[2022-04-11] MEDS ORDERED: ACETAMINOPHEN 500 MG TABLET (FP) ONE (09:53)
[2022-04-11 09:59] VITALS: BP 106/66; PULSE 71
== END 2022-04-11 11:57 | disposition home or self-care (01) ==
LOC: FASU 06:21
PROVIDERS: ATTEND Orthopaedic Surgery Sports Medicine
PROC: 0SNDXZZ Release Left Knee Joint, External Approach (ICD-10-PCS; principal; 2022-04-11 08:17)
DX: M24.662 Ankylosis, left knee (principal)
CPT/HCPCS: 82962; 94760

== ENCOUNTER 2023-01-26 09:17 | Emergency (ER) | payer OTHER ==
[2023-01-26 09:23] VITALS: BMI 29.2
[2023-01-26] MEDS ORDERED: ASPIRIN 81 MG CHEWABLE TABLETS PO ONE (09:39)
[2023-01-26] MEDS ORDERED: ASPIRIN 81 MG CHEWABLE TABLETS ONE (09:42)
[2023-01-26] MEDS ORDERED: FAMOTIDINE 20 MG/50 ML IVPB 20 MG/50 ML MG IVPB ONE ×2 (09:44→10:11)
[2023-01-26] MEDS ORDERED: MAG HYDROX/AL HYDROX/SIMETH 30 ML UNIT-DOSE CUP PO ONE (09:44)
[2023-01-26 10:00] LABS: BASO % 0.9 % (0-2.0); EOS % 8.6 % (0-4.5); HEMATOCRIT 41.8 % (35.4-49); HEMOGLOBIN 15.3 GM/dL (11.7-16.9); LYMPH % 26.8 % (8-40); MCH 30.4 pg (25.7-33.7); MCHC 36.7 g/dl (32.0-35.9); MEAN CELL VOLUME 82.9 fl (80-96); MEAN PLT VOLUME 9.7 fl (7.5-11.1); MONO % 8.9 % (3.8-10.2); NEUT % 54.8 % (42.8-82.8); PLATELET COUNT 151 10^3/uL (134-434); RBC 5.04 M/mm3 (4.00-5.60); RDW 13.6 % (11.9-15.9)
[2023-01-26] MEDS ORDERED: CYCLOBENZAPRINE HCL 10 MG TABLET (FP) PO ONE (10:04)
[2023-01-26 10:08] LABS: PH,URINE 5.5 (5.0-8.0); URINE APPEARANCE CLEAR; URINE BILIRUBIN NEGATIVE (NEGATIVE); URINE COLOR YELLOW; URINE GLUCOSE (UA) 2+ (NEGATIVE); URINE KETONE NEGATIVE (NEGATIVE); URINE LEUK ESTERASE NEGATIVE (NEGATIVE); URINE NITRITE NEGATIVE (NEGATIVE); URINE PROTEIN NEGATIVE (NEGATIVE); URINE UROBILINOGEN 0.2 mg/dL (0.2-1.0)
[2023-01-26] MEDS ORDERED: MAG HYDROX/AL HYDROX/SIMETH 30 ML UNIT-DOSE CUP ONE (10:10)
[2023-01-26 10:14] LABS: INR 1.02 (0.83-1.09); PROTHROMBIN TIME (PATIENT) 11.8 SEC (9.7-13.0)
[2023-01-26] MEDS ORDERED: CYCLOBENZAPRINE HCL 10 MG TABLET (FP) ONE (10:14)
[2023-01-26 10:17] LABS: ACTIVATED PTT 30.2 SECONDS (25.2-36.5)
[2023-01-26 10:26] LABS: POTASSIUM 4.2 mmol/L (3.5-5.1)
[2023-01-26 10:28] LABS: BLOOD UREA NITROGEN 20.6 mg/dL (7-18)
[2023-01-26 10:29] LABS: ALBUMIN 4.1 g/dl (3.4-5.0); MAGNESIUM 1.9 mg/dL (1.8-2.4)
[2023-01-26 10:31] LABS: CREATININE 1.4 mg/dL (0.55-1.3)
[2023-01-26 10:33] LABS: BILIRUBIN,TOTAL 0.6 mg/dL (0.2-1); TOT PROT 6.9 g/dl (6.4-8.2)
[2023-01-26 10:37] LABS: N-TERMINAL BNP 177.8 pg/ml (5-125)
[2023-01-26 13:05] VITALS: BP 130/75; PULSE 75; RESP 18; TEMP 98.1
== END 2023-01-26 13:05 | disposition home or self-care (01) ==
LOC: JER 09:17
PROC: 3E033GC Introduction of Other Therapeutic Substance into Peripheral Vein, Percutaneous Approach (ICD-10-PCS; principal; 2023-01-26)
DX: R07.9 Chest pain, unspecified (principal); Z20.822 Contact with and (suspected) exposure to COVID-19
CPT/HCPCS: 0241U-QW; 36415; 71045-TC-FY; 80053; 81003; 83690; 83735; 83880; 84484; 85025; 85610; 85730; 87086; 93005; 93010; 99284-25

== ENCOUNTER 2023-05-26 04:10 | Day surgery (SDC) | payer OTHER ==
[2023-05-24 18:12] VITALS: BMI 30.4
[2023-05-26] MEDS ORDERED: BUPIVACAINE HCL/PF 0.5% (5MG/ML) 10 ML VIAL ONE (07:18)
[2023-05-26] MEDS ORDERED: LIDOCAINE HCL/PF 2% SDV 5ML VIAL ONE (07:18)
[2023-05-26] MEDS ORDERED: BUPIVACAINE HCL/PF 0.25% (2.5MG/ML) 10 ML VIAL ONE (07:18)
[2023-05-26] MEDS ORDERED: TRIAMCINOLONE ACET 40MG/1ML VIAL ONE (07:18)
[2023-05-26] MEDS ORDERED: BUPIVACAINE HCL/PF 0.75% 10 ML VIAL ONE (07:19)
[2023-05-26] MEDS ORDERED: DEXAMETHASONE SOD PHOSPHATE 10 MG/1 ML VIAL ONE (07:19)
[2023-05-26] MEDS ORDERED: LIDOCAINE HCL/PF 1% SDV 5ML VIAL ONE (07:19)
[2023-05-26] MEDS ORDERED: LIDOCAINE HCL/PF 2% SDV 5ML VIAL INF ONE (11:24)
[2023-05-26 12:19] VITALS: BP 134/78; PULSE 82; RESP 18; TEMP 97.8
[2023-05-26] MEDS ORDERED: ACETAMINOPHEN 500 MG TABLET (FP) PO PRN (16:17)
== END 2023-05-26 13:01 | disposition home or self-care (01) ==
LOC: JASU-SURG 04:10
PROVIDERS: ATTEND Pain Medicine Pain Medicine
PROC: 015D3ZZ Destruction of Femoral Nerve, Percutaneous Approach (ICD-10-PCS; principal; 2023-05-26 11:15)
DX: M25.562 Pain in left knee (principal)
CPT/HCPCS: J1100

== ENCOUNTER 2023-08-04 04:13 | Day surgery (SDC) | payer OTHER ==
[2023-08-04 08:58] VITALS: RESP 18
[2023-08-04] MEDS ORDERED: BUPIVACAINE HCL/PF 0.75% 10 ML VIAL NR ONE (10:55)
[2023-08-04] MEDS ORDERED: LIDOCAINE HCL 1%, 10 MG/ML (20ML VIAL) NR ONE (10:55)
[2023-08-04 11:36] VITALS: BP 124/83; PULSE 63; TEMP 98.4
[2023-08-04] MEDS ORDERED: ACETAMINOPHEN 500 MG TABLET (FP) PO PRN (12:23)
== END 2023-08-04 11:30 | disposition home or self-care (01) ==
LOC: JASU-SURG 04:13
PROVIDERS: ATTEND Pain Medicine Pain Medicine
PROC: 3E0T33Z Introduction of Anti-inflammatory into Peripheral Nerves and Plexi, Percutaneous Approach (ICD-10-PCS; 2023-08-04)
PROC: 3E0T3BZ Introduction of Anesthetic Agent into Peripheral Nerves and Plexi, Percutaneous Approach (ICD-10-PCS; principal; 2023-08-04 10:30)
DX: M47.816 Spondylosis without myelopathy or radiculopathy, lumbar region (principal)
CPT/HCPCS: 76000-TC-FY

== ENCOUNTER 2023-09-01 04:12 | Day surgery (SDC) | payer OTHER ==
[~2023-09-01 04:12] MED LIST changes: -BUPIVICAINE 0.25%/MORPH PF/KETOROLAC - 51ML DISP.SYRINGE IA ONE; +DEXAMETHASONE SOD PHOSPHATE 10 MG/1 ML VIAL IVPUSH ONE; -VANCOMYCIN 1,000 MG VIAL (RESTRICTED TO ID ONLY) IVPB ONE
[2023-09-01] MEDS ORDERED: LIDOCAINE HCL/PF 2% SDV 5ML VIAL ONE (07:23)
[2023-09-01] MEDS ORDERED: LIDOCAINE HCL/PF 1% SDV 5ML VIAL ONE (07:24)
[2023-09-01] MEDS ORDERED: BUPIVACAINE HCL/PF 0.75% 10 ML VIAL ONE (07:24)
[2023-09-01 08:35] VITALS: RESP 18; TEMP 98.6
[2023-09-01] MEDS ORDERED: LIDOCAINE HCL/PF 2% SDV 5ML VIAL INF ONE (09:49)
[2023-09-01] MEDS ORDERED: LIDOCAINE 1% P/F 10 MG/ML VIAL INF ONE (09:50)
[2023-09-01] MEDS ORDERED: BUPIVACAINE HCL/PF 0.75% 10 ML VIAL NR ONE (09:51)
[2023-09-01 10:34] VITALS: BP 122/84; PULSE 71
== END 2023-09-01 10:39 | disposition home or self-care (01) ==
LOC: JASU-SURG 04:12
PROVIDERS: ATTEND Pain Medicine Pain Medicine
PROC: 015B3ZZ Destruction of Lumbar Nerve, Percutaneous Approach (ICD-10-PCS; principal; 2023-09-01 10:15)
DX: M47.816 Spondylosis without myelopathy or radiculopathy, lumbar region (principal)
CPT/HCPCS: J1100

== ENCOUNTER 2024-05-02 04:15 | Day surgery (SDC) | payer OTHER ==
[2024-05-01 10:04] VITALS: BMI 29.1
[2024-05-02] MEDS ORDERED: LIDOCAINE HCL/PF 2% SDV 5ML VIAL ONE (07:16)
[2024-05-02] MEDS ORDERED: LIDOCAINE HCL/PF 1% SDV 5ML VIAL ONE (07:17)
[2024-05-02] MEDS ORDERED: BUPIVACAINE HCL/PF 0.75% 10 ML VIAL ONE (07:17)
[2024-05-02] MEDS ORDERED: DEXAMETHASONE SOD PHOSPHATE 10 MG/1 ML VIAL ONE (07:17)
[2024-05-02] MEDS: LIDOCAINE HCL/PF 2% SDV 5ML VIAL INF ONE (08:23)
[2024-05-02] MEDS: BUPIVACAINE HCL/PF 0.75% 10 ML VIAL NR ONE (08:25)
[2024-05-02] MEDS: LIDOCAINE HCL 1% PRESERVATIVE FREE - 30ML VIAL IJ ONE (08:25)
[2024-05-02] MEDS: DEXAMETHASONE SOD PHOSPHATE 10 MG/1 ML VIAL IVPUSH ONE (08:25)
[2024-05-02 09:02] VITALS: BP 128/76; PULSE 74; RESP 20; TEMP 97.9
== END 2024-05-02 08:59 | disposition home or self-care (01) ==
LOC: JASU-SURG 04:15
PROVIDERS: ATTEND Pain Medicine Pain Medicine
PROC: 015B3ZZ Destruction of Lumbar Nerve, Percutaneous Approach (ICD-10-PCS; principal; 2024-05-02 08:00)
DX: M47.816 Spondylosis without myelopathy or radiculopathy, lumbar region (principal)
CPT/HCPCS: 76000-TC-FY; J1100